=== PATIENT | male | born 1985 | race Caucasian/White ===

== ENCOUNTER 2016-06-04 09:19 | Emergency (ER) | payer OTHER ==
[2016-06-04] MEDS ORDERED: Metoclopramide 10 MG/2 ML SDV IVPUSH ONE (09:32)
[2016-06-04] MEDS ORDERED: HYDROmorphone 1 MG/ML Syringe IVPUSH ONE (09:32)
--- NOTE | 2016-06-04 09:37 | EDM.PDOC ---
ED HPI Trauma - General Chief Complaint: Trauma Stated Complaint: [facility] Time Seen by Provider: 06/04/16 09:21 Source: Reports: Patient History Limitations: Reports: No limitations - History of Present Illness INITIAL COMMENTS - FREE TEXT/NARRATIVE: 22-year-old male presents the ED after a work-related injury. 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 Or struck with travel from pieces of the exploding tire in the face who took a serious blow to his nose. It also knocked him backwards so that he fell on concrete floor landing on his right chest arm forearm wrist area. He believes he was dazed but he never lost consciousness. No systolic bleeding on its own. States his teeth are all aligned. He comes in in c-collar precautions. Denies any pain in his chest other than his right lateral ribs. No abdominal pain and he can work without any pain in his knees hips or lower back. Symptom Onset Date: 06/04/16 Symptom Onset Time: 08:30 Occurred When: this morning Occurred Where: work Method of Injury: direct blow (Tire blew up in his face.), other Severity: moderate Pain/Injury Location: Reports: face, mouth, neck, chest (Right ribs), upper extremity, right (Right forearm and wrist area.) Consciousness: Reports: no loss of consciousness, dazed. Denies: remembers incident, remembers coming to hosp, still comatose, unsure Associated Symptoms: Reports: no other symptoms Allergies/ADRs: Allergies No Known Allergies Allergy (Verified 06/04/16 09:46) Home Medications: Ambulatory Orders . [No Known Home Meds] 06/04/16 [Confirmed 06/04/16] Past Medical History - Past Health History Medical/Surgical History: Denies Medical/Surgical History Genitourinary History: Reports: Renal calculus Musculoskeletal History: Reports: None Neurological History: Reports: Migraines Immunologic History: Reports: None - Past Surgical History Musculoskeletal Surgical History: Reports: Arthroscopic knee Social & Family History - Family History Family Medical History: Noncontributory - Tobacco Use Smoking Status *Q: Current Every Day Smoker Years of Tobacco use: 6 Packs/Tins Daily: 1 Used Tobacco, but Quit: No - Caffeine Use Caffeine Use: Reports: Coffee, Energy drinks, Soda, Tea - Recreational Drug Use Recreational Drug Use: No - Living Situation & Occupation Occupation: employed Review of Systems - Review of Systems Review Of Systems: See Below Constitutional: Reports: no symptoms Eyes: Reports: no symptoms, other (Has some superficial abrasions to the upper left eyelid. Theses are linear in fashion. Also otherwise normal.) Ears: Reports: no symptoms Nose: Reports: epistaxis (Dry blood in both anterior nares. The nose itself appears to be aligned fairly well. He is mildly swelling.) Mouth/Throat: Reports: other (Bones no malocclusion teeth nausea. No injury to the tongue or dental injuries appreciated.) Respiratory: Reports: No Symptoms, Other. Denies: Shortness of Breath, Wheezing Cardiovascular: Reports: no symptoms (Some pain on palpation of the right ribs.) GI/Abdominal: Reports: No symptoms Genitourinary: Reports: no symptoms Musculoskeletal: Reports: neck pain, hand pain (Wrist pain hand pain and forearm pain on the right side he believes he landed on that arm when he fell backwards). Denies: no symptoms, shoulder pain, arm pain, back pain, leg pain, foot pain, joint pain, joint swelling Skin: Reports: no symptoms ( after the exploding tire struck him.) Neurological: Reports: No Symptoms ED EXAM, TRAUMA (MAJOR/MULTI) - Physical Exam Exam: See Below Exam Limited By: No limitations General Appearance: alert, WD/WN, other (Nose is mildly swollen both ears are clogged with blood. No active bleeding) Head: atraumatic, normocephalic, other ( Two Superficial abrasions to the left upper eyelid appreciated.) Eyes: bilateral eye: normal fundi, normal inspection, PERRL Ears: normal TMs Nose: nasal swelling (Mild), dried blood (In both ears worse on the left as compared to the right.). No: nasal deformity, nasal discharge, nasal ecchymosis , septal deformity, septal hematoma Throat/Mouth: Normal inspection, Normal lips, Normal teeth, Normal gums, Normal oropharynx, Other (No malocclusion evident.) Neck: other (Tenderness along the right paraspinal musculature on examination of her c-collar was replaced and will be cleared by CT exam) Cardiovascular: normal peripheral pulses, regular rate, rhythm, no edema, no gallop, no murmur Respiratory/Chest: no respiratory distress, lungs clear, normal breath sounds, no accessory muscle use GI/Abdominal: normal bowel sounds, soft, non tender, no organomegaly (Male) Exam: No hernia Rectal (Males) Exam: Normal rectal tone Back: normal inspection, non-tender, other (No abrasions or contusions.). No: CVA tenderness (R), CVA tenderness (L) Extremities: other (Right forearm was all wrapped up initially. Examination shows slight swelling of the dorsal aspect of the wrist and mid forearm with no developing hematoma unit. No deformities are otherwise appreciated) Neurologic: no motor/sensory deficits, alert, normal mood/affect, oriented x 3 Skin: Normal color, Warm/dry - Wil Coma Score Best Eye Response (Wil): (4) open spontaneously Best Verbal Response (Wil): (5) oriented Best Motor Response (Jewett): (6) obeys commands Jewett Total: 15 Course - Vital Signs Last Recorded V/S: Last Vital Signs Temp 36.7 C 06/04/16 12:05 Pulse 90 06/04/16 12:05 Resp 16 06/04/16 12:05 BP 113/85 06/04/16 12:05 Pulse Ox 100 06/04/16 12:05 - Orders/Labs/Meds Orders: Active Orders 24 hr Category Date Time Status Vaccines to be Administered [RC] PER UNIT ROUTINE Care 06/04/16 11:34 Active Forearm 2V Rt [CR] Stat Exams 06/04/16 09:32 Taken Wrist Comp Min 3V Rt [CR] Stat Exams 06/04/16 09:33 Taken Labs: Laboratory Tests 06/04/16 06/04/16 Range/Units 09:34 09:34 WBC 7.39 (4.23-9.07) K/mm3 RBC 5.50 (4.63-6.08) M/mm3 Hgb 15.8 (13.7-17.5) gm/L Hct 46.1 (40.1-51.0) % MCV 83.8 (79.0-92.2) fl MCH 28.7 (25.7-32.2) pg MCHC 34.3 (32.2-35.5) g/dl RDW Std Deviation 41.0 (35.1-43.9) fL Plt Count 187 (163-337) K/mm3 MPV 9.9 (9.4-12.3) fl Neutrophils % (Manual) 60 (40-60) % Band Neutrophils % 0 (0-10) % Lymphocytes % (Manual) 39 (20-40) % Atypical Lymphs % 0 % Monocytes % (Manual) 1 L (2-10) % Eosinophils % (Manual) 0 L (0.8-7.0) % Basophils % (Manual) 0 L (0.2-1.2) Platelet Estimate Adequate RBC Morph Comment Normal Sodium 139 (136-145) mEq/L Potassium 3.9 (3.5-5.1) mEq/L Chloride 106 (98-107) mEq/L Carbon Dioxide 25 (21-32) mEq/L Anion Gap 11.9 (5-15) BUN 11 (7-18) mg/dL Creatinine 0.8 (0.7-1.3) mg/dL Est Cr Clr Drug Dosing TNP Estimated GFR (MDRD) > 60 (>60) mL/min BUN/Creatinine Ratio 13.8 L (14-18) Glucose 96 (74-106) mg/dL Calcium 8.7 (8.5-10.1) mg/dL Total Bilirubin 0.5 (0.2-1.0) mg/dL AST 23 (15-37) U/L ALT 23 (16-63) U/L Alkaline Phosphatase 126 H (46-116) U/L Total Protein 7.1 (6.4-8.2) g/dl Albumin 4.1 (3.4-5.0) g/dl Globulin 3.0 gm/dL Albumin/Globulin Ratio 1.4 (1-2) Ethyl Alcohol 0.00 (0.00) gm% Meds: Medications Discontinued Medications Generic Name Dose Route Start Last Admin Trade Name Freq PRN Reason Stop Dose Admin Diphtheria/Tetanus/Acell Pertussis 0.5 ml 06/04/16 11:34 06/04/16 11:44 Boostrix IM 06/04/16 11:35 0.5 ml .ONCE ONE Administration Hydromorphone HCl 1 mg 06/04/16 09:32 06/04/16 10:03 Dilaudid IVPUSH 06/04/16 09:33 1 mg ONETIME ONE Administration Hydromorphone HCl 0.5 mg 06/04/16 10:39 06/04/16 10:49 Dilaudid IVPUSH 06/04/16 10:40 0.5 mg ONETIME ONE Administration Sodium Chloride 1,000 mls @ 150 mls/hr 06/04/16 09:45 06/04/16 09:51 Normal Saline IV 150 mls/hr ASDIRECTED EDUIN Administration Metoclopramide HCl 10 mg 06/04/16 09:32 06/04/16 09:54 Reglan IVPUSH 06/04/16 09:33 10 mg ONETIME ONE Administration - Radiology Interpretation Free Text/Narrative:: 10-year-old male involved in a work-related injury this morning. Titer seen in thalamus repairing up into her face. 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 He was struck with pieces of the tire in the midface particularly his nose and hyperextended his neck. The force of the blow also pushed him backwards causing him to fall to concrete floor landing on his right ribs right shoulder forearm elbow and wrist area. He came in by ambulance and with a C-spine precaution. He has abrasions to the upper left eyelid without any injury to the eye itself. Nose is been continued contused and was actively bleeding the ball size but has stopped since arrival no septal hematoma evident. His right arm is wrapped in a dressing. Plan he course CT of the maxillofacial bones his head his cervical spine an CT of his chest. - Re-Assessments/Exams Free Text/Narrative Re-Assessment/Exam: 06/04/16 10:49: CT scan of the facial bones reveals no fractures. Even his nose is not broken. CT of the head is within normal limits CT cervical spine is also within normal limits and the collar was removed by me. X-rays of the forearm wrist and elbow area show no broken bones. Examination of the dressings were removed so that he is developing a hematoma and bruising over the olecranon process of the elbow. Has some soft tissue swelling dorsal wrist and mid forearm. His nose will be cleaned out as best as possible causes for with dried blood clots. Given something to drink and we'll get him up and see how he feels. He will have to call for arrived from [facility] to come and pick him up. 06/04/16 11:51 He was up and walking he states he felt overall better. HTN his ribs in his forearm and lumbar stiffness and soreness in his neck in his course his nose is quite sore. He plans on returning to work tomorrow. I sore areas today and tomorrow. Motrin 600 mg every 6 hours when necessary for pain relief. Departure - Departure Time of Disposition: 11:36 Disposition: Home, Self-Care 01 Condition: fair Clinical Impression: Contusion of nose, initial encounter Qualifiers: Encounter type: initial encounter Qualified Code(s): S00.33XA - Contusion of nose, initial encounter Abrasion of left eyebrow Qualifiers: Encounter type: initial encounter Qualified Code(s): S00.212A - Abrasion of left eyelid and periocular area, initial encounter Sprain of cervical neck Qualifiers: Encounter type: initial encounter Qualified Code(s): S13.9XXA - Sprain of joints and ligaments of unspecified parts of neck, initial encounter Contusion of rib on right side Qualifiers: Encounter type: initial encounter Qualified Code(s): S20.211A - Contusion of right front wall of thorax, initial encounter Contusion of right forearm, initial encounter Qualifiers: Encounter type: initial encounter Qualified Code(s): S50.11XA - Contusion of right forearm, initial encounter Contusion of right elbow and forearm Qualifiers: Encounter type: initial encounter Qualified Code(s): S50.11XA - Contusion of right forearm, initial encounter Instructions: Contusion, [id number], Cervical Sprain, [id number], Abrasion , [id number] Referrals: PCP,None [Primary Care Provider] - Forms: ED Department Discharge Additional Instructions: Evaluation in the emergency room today in regards to work related injury. Somewhat higher you're working on repairing this morning exploded with suffering blunt force trauma to the mid facial structures from prior fragments. Blunt trauma to the nose without fracture identified on CT exam. Nose was actively bleeding but it stopped prior to coming to the ED. Suffered minor abrasions to the upper eyelid area on the left side strain of the cervical spine from the force of injury. Due to the blast injury fall to the floor he contused her right ribs right forearm and right wrist area. Expect to have more stiffness and soreness develop over the next 48 hours and other areas. Also soft tissue swelling goes on for up to 48 hours after injury. Ice pack to these areas for one half hour of every 4 hours may reduce swelling and pain. Off work today but may return to work tomorrow if you feel capable. Motrin 600 mg every 6 hours need to relieve pain and inflammation. Followup with personal physician if any further problems occur. - My Orders Last 24 Hours: My Active Orders 06/04/16 09:32 Forearm 2V Rt [CR] Stat 06/04/16 09:33 Wrist Comp Min 3V Rt [CR] Stat 06/04/16 11:34 Vaccines to be Administered [RC] PER UNIT ROUTINE - Assessment/Plan Last 24 Hours: My Active Orders 06/04/16 09:32 Forearm 2V Rt [CR] Stat 06/04/16 09:33 Wrist Comp Min 3V Rt [CR] Stat 06/04/16 11:34 Vaccines to be Administered [RC] PER UNIT ROUTINE
[2016-06-04] MEDS ORDERED: Sodium Chloride 0.9% 1,000 ML IV SCH (09:45)
[2016-06-04] MEDS ORDERED: HYDROmorphone 0.5 MG/0.5 ML Syringe IVPUSH ONE (10:39)
--- NOTE | 2016-06-04 10:51 | CT ---
CT cervical spine Technique: Multiple axial sections were obtained from above C1 inferiorly to the bottom of T2. Reconstructed sagittal and coronal images were reviewed. Comparison: No previous cervical spine imaging. Findings: Posterior skull base is intact. Partial congenital block vertebra noted at C3-4. Vertebral bodies and posterior arches are intact. No fracture is seen. No bony central canal stenosis is seen. Moderate narrowing of the left neural foramina on a developmental basis is seen at C3-4. Other neural foramina are patent. No abnormal subluxation is seen on the reconstructed sagittal images. Impression: 1. 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 2. No acute fracture or abnormal subluxation is seen on CT study of the cervical spine. Diagnostic code #2
--- NOTE | 2016-06-04 10:54 | CT ---
CT facial bones Technique: Multiple axial sections were obtained through the facial bones. Reconstructed coronal and sagittal images were reviewed. Findings: Mild mucosal thickening is seen within the maxillary sinuses and both sides. Other visualized sinuses are clear. No air-fluid levels are seen. Right and left globes are symmetric. No facial bone fracture is identified. Impression: 1. Sinus findings which likely are pre-existing. 2. Nothing acute is seen on CT study of the facial bones. Diagnostic code #2
--- NOTE | 2016-06-04 10:58 | CT ---
CT chest Technique: Multiple axial sections through the chest were obtained. Intravenous contrast was not utilized. Comparison: Previous chest CT of 03/19/16 is available. Findings: Mediastinum and hilar regions appear within normal limits. No pericardial thickening is seen. Small nonobstructing calculus is partially visualized within the mid right kidney. No axillary adenopathy is seen. Lungs are clear. No pneumothorax or pleural effusion is seen. No discrete rib fracture is appreciated. Reconstructed sagittal images shows no compression deformity within the thoracic spine. Sternum shows no fracture. Impression: 1. Small nonobstructing calculus within the mid right kidney. 2. Noncontrast chest CT study is otherwise unremarkable. Diagnostic code #2
--- NOTE | 2016-06-04 11:00 | CT ---
Head CT Technique: Multiple axial sections were obtained through the brain. Intravenous contrast was not utilized. Comparison: Previous head CT study of 09/07/15. Findings: Ventricles along with basal cisterns and sulci over the convexities are within normal limits for the patient's age. No abnormal parenchymal densities are seen. No evidence of intracranial hemorrhage. No midline shift or mass effect is seen. Mucosal thickening is seen within both maxillary sinuses. Other sinuses that are seen appear clear. No acute calvarial abnormality is seen. Impression: 1. Mucosal thickening within both maxillary sinuses with no air-fluid levels. 2. No acute intracranial abnormality is appreciated. No skull fracture is seen. Diagnostic code #2
[2016-06-04] MEDS ORDERED: Diphtheria,Pertussis(Acell),Tetanus Vaccine 0.5 ML SDV inactive IM ONE (11:34)
[2016-06-04 12:20] VITALS: BP 113/85
--- NOTE | 2016-06-05 12:21 | CR ---
Right wrist: Four views of the right wrist were obtained. Comparison: No prior right wrist exam. Joint spaces are preserved. No fracture, dislocation or other bony abnormality is seen. Impression: 1. No abnormality is seen on right wrist exam. Diagnostic code #1
--- NOTE | 2016-06-05 12:21 | CR ---
Right forearm: Two views of the right forearm were obtained. Comparison: No previous forearm study. No fracture or other bony abnormality is seen. Mild soft tissue swelling is present. Impression: 1. Soft tissue swelling. No acute bony abnormality is identified on right forearm study. Diagnostic code #2
== END 2016-06-04 12:10 | disposition home or self-care (01) ==
LOC: JD.ED 09:19
DX: S13.9XXA Sprain of joints and ligaments of unspecified parts of neck, initial encounter (principal); S50.11XA Contusion of right forearm, initial encounter; S20.211A Contusion of right front wall of thorax, initial encounter; S00.33XA Contusion of nose, initial encounter; S00.212A Abrasion of left eyelid and periocular area, initial encounter; F17.210 Nicotine dependence, cigarettes, uncomplicated; Z98.890 Other specified postprocedural states; W37.8XXA Explosion and rupture of other pressurized tire, pipe or hose, initial encounter; Y92.69 Other specified industrial and construction area as the place of occurrence of the external cause; Y99.0 Civilian activity done for income or pay; Z23 Encounter for immunization
CPT/HCPCS: 36415; 70450; 70486; 71250; 72125; 73090; 73110; 80053; 85025; 90471; 96361; 96374; 96375; 99285; G0480; J1170; J2765; J7040; 90715; 99284

== ENCOUNTER 2016-10-02 14:01 | Emergency (ER) | payer OTHER ==
[2016-10-02 14:35] VITALS: BP 108/69
[2016-10-02] MEDS ORDERED: diphenhydrAMINE 50 MG/ML SDV IVPUSH ONE (15:23)
[2016-10-02] MEDS ORDERED: Sodium Chloride 0.9% 1,000 ML IV ONE (15:23)
[2016-10-02] MEDS ORDERED: Ondansetron 4 MG/2 ML SDV IVPUSH ONE (15:23)
[2016-10-02] MEDS ORDERED: Metoclopramide 10 MG/2 ML SDV IVPUSH ONE (15:23)
[2016-10-02] MEDS ORDERED: Ketorolac 30 MG/ML SDV IVPUSH ONE (15:23)
--- NOTE | 2016-10-02 15:44 | EDM.PDOC ---
ED HPI GENERAL MEDICAL PROBLEM - General Chief Complaint: Headache Stated Complaint: SEVERE HEADACHE,BDY ACHES Time Seen by Provider: 10/02/16 14:48 Source of Information: Reports: Patient History Limitations: Reports: No Limitations - History of Present Illness INITIAL COMMENTS - FREE TEXT/NARRATIVE: The patient is a 31-year-old male who was sent over from clinic for evaluation of headache. According the patient, he was in clinic earlier this week and diagnosed with possible "pneumonia" but not a type that would require treatment with antibiotics. He's had some stuffy nose and cough, his cough is actually improved. No documented fevers. He also has a bad headache and back ache and states that he was sent here from clinic for evaluation of his headache and backache. His headache is been present for a few days. Constant, frontal, throbbing, severe. States that he hasn't had headaches this severe previously. No vision changes, bright sunlight does exacerbate the headache. Nausea, had some vomiting initially but no vomiting now. Hasn't taken anything for the headache today. He also has diffuse back pain. Denies injury. Pain is located in both upper and the lower back. Moderate severity. 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 Pain Score (Numeric/FACES): 7 - Related Data Allergies Allergy/AdvReac Type Severity Reaction Status Date / Time No Known Allergies Allergy Verified 06/04/16 09:46 Home Meds: Home Meds Ibuprofen 800 mg PO TID PRN #30 tablet 10/02/16 [Rx] Past Medical History - Past Health History Medical/Surgical History: Denies Medical/Surgical History HEENT History: Reports: Impaired Vision Genitourinary History: Reports: Renal Calculus Musculoskeletal History: Reports: None Neurological History: Reports: Migraines Psychiatric History: Reports: Other (See Below) Other Psychiatric History: 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 Immunologic History: Reports: None - Infectious Disease History Infectious Disease History: Reports: Chicken Pox - Past Surgical History Musculoskeletal Surgical History: Reports: Arthroscopic Knee Social & Family History - Family History Family Medical History: Noncontributory - Tobacco Use Smoking Status *Q: Current Every Day Smoker Years of Tobacco use: 10 Packs/Tins Daily: 0.5 Used Tobacco, but Quit: No - Caffeine Use Caffeine Use: Reports: Coffee - Recreational Drug Use Recreational Drug Use: No - Living Situation & Occupation Occupation: Employed ED ROS GENERAL - Review of Systems Review Of Systems: See Below Constitutional: Reports: Chills, Malaise, Fatigue HEENT: Denies: Vision Change Respiratory: Reports: Cough GI/Abdominal: Denies: Nausea Musculoskeletal: Reports: Neck Pain, Back Pain Skin: Reports: No Symptoms Neurological: Reports: Headache - Physical Exam Exam: See Below Exam Limited By: No Limitations General Appearance: Alert, WD/WN, No Apparent Distress Eye Exam: Bilateral Eye: EOMI, PERRL Ears: Normal External Exam Nose: Normal Inspection, Normal Mucosa, No Blood Throat/Mouth: Normal Inspection, Normal Oropharynx, Normal Voice, No Airway Compromise Head Exam: Atraumatic, Normocephalic Neck: Normal Inspection, Supple, Full Range of Motion, Other (midline C-spine TTP, skin normal, no step offs. No meningismus. The patient spontaneously nods his head yes and no in response to my questioning and doesn't appear to be uncomfortable.) Respiratory/Chest: No Respiratory Distress, Lungs Clear, Normal Breath Sounds, Chest Non-Tender Cardiovascular: Normal Peripheral Pulses, Regular Rate, Rhythm, No Murmur GI/Abdominal: Soft, Non-Tender, No Distention. No: Rebound Neuro Exam (Abbreviated): Alert, Oriented, CN II-XII Intact, Normal Cognition, No Motor/Sensory Deficits Back Exam: Normal Inspection, Paraspinal Tenderness, Vertebral Tenderness, Other (diffusely, most prominent in mid-T spine) Extremities: Normal Inspection Psychiatric: Normal Affect, Normal Mood Skin Exam: Warm, Dry, Intact, Normal Color, No Rash Course - Vital Signs Last Recorded V/S: Last Vital Signs Temp 36.8 C 10/02/16 14:31 Pulse 76 10/02/16 14:31 Resp 16 10/02/16 14:31 BP 108/69 10/02/16 14:31 Pulse Ox 98 10/02/16 14:31 - Orders/Labs/Meds Labs: Laboratory Tests 10/02/16 10/02/16 Range/Units 15:32 15:32 WBC 7.53 (4.23-9.07) K/mm3 RBC 4.63 (4.63-6.08) M/mm3 Hgb 14.0 (13.7-17.5) gm/L Hct 40.7 (40.1-51.0) % MCV 87.9 (79.0-92.2) fl MCH 30.2 (25.7-32.2) pg MCHC 34.4 (32.2-35.5) g/dl RDW Std Deviation 42.8 (35.1-43.9) fL Plt Count 171 (163-337) K/mm3 MPV 9.8 (9.4-12.3) fl Neut % (Auto) 56.9 (34.0-67.9) % Lymph % (Auto) 35.9 (21.8-53.1) % Gilchrist % (Auto) 5.6 (5.3-12.2) % Eos % (Auto) 1.2 (0.8-7.0) Baso % (Auto) 0.3 (0.1-1.2) % Neut # (Auto) 4.29 (1.78-5.38) K/mm3 Lymph # (Auto) 2.70 (1.32-3.57) K/mm3 Gilchrist # (Auto) 0.42 (0.30-0.82) K/mm3 Eos # (Auto) 0.09 (0.04-0.54) K/mm3 Baso # (Auto) 0.02 (0.01-0.08) K/mm3 Sodium 144 (136-145) mEq/L Potassium 3.9 (3.5-5.1) mEq/L Chloride 110 H (98-107) mEq/L Carbon Dioxide 27 (21-32) mEq/L Anion Gap 10.9 (5-15) BUN 10 (7-18) mg/dL Creatinine 0.9 (0.7-1.3) mg/dL Est Cr Clr Drug Dosing 121.11 mL/min Estimated GFR (MDRD) > 60 (>60) mL/min BUN/Creatinine Ratio 11.1 L (14-18) Glucose 86 (74-106) mg/dL Calcium 8.4 L (8.5-10.1) mg/dL Total Bilirubin 0.2 (0.2-1.0) mg/dL AST 20 (15-37) U/L ALT 19 (16-63) U/L Alkaline Phosphatase 101 (46-116) U/L Total Protein 6.9 (6.4-8.2) g/dl Albumin 3.8 (3.4-5.0) g/dl Globulin 3.1 gm/dL Albumin/Globulin Ratio 1.2 (1-2) Meds: Medications Discontinued Medications Generic Name Dose Route Start Last Admin Trade Name Jose PRN Reason Stop Dose Admin Diphenhydramine HCl 25 mg 10/02/16 15:23 10/02/16 15:44 Benadryl IVPUSH 10/02/16 15:24 25 mg ONETIME ONE Administration Sodium Chloride 1,000 mls @ 1,000 mls/hr 10/02/16 15:23 10/02/16 15:39 Normal Saline IV 10/02/16 16:22 1,000 mls/hr ONETIME ONE Administration Ketorolac Tromethamine 30 mg 10/02/16 15:23 10/02/16 15:43 Toradol IVPUSH 10/02/16 15:24 30 mg ONETIME ONE Administration Metoclopramide HCl 10 mg 10/02/16 15:23 10/02/16 15:39 Reglan IVPUSH 10/02/16 15:24 10 mg ONETIME ONE Administration Ondansetron HCl 4 mg 10/02/16 15:23 10/02/16 15:43 Zofran IVPUSH 10/02/16 15:24 4 mg ONETIME ONE Administration - Radiology Interpretation Free Text/Narrative:: Patient is well appearing, has normal vital signs, benign exam, no suggestion of meningismus. His basic labs are reassuring, with a normal white count and no left shift. His headache is much improved after a migraine cocktail. He does not have significant neck stiffness or pain with moving his head around. He states his headache is resolved. His back pain appears to be musculoskeletal. Review of his records show that he has endorsed headache in the emergency department in the past. I don't think that he needs emergent imaging or other emergency department workup given that he is feeling much better now. I will refer him back to clinic for further workup. My suspicion for meningitis is very low given all of the above in this well-appearing patient, I think that the risks associated with lumbar puncture outweigh the potential benefit of further diagnostic workup in the emergency department at this time. I did discuss strict return precautions with the patient for worsening symptoms, which would prompt reevaluation with possible further workup if indicated. Patient understood. I also discussed the patient with Dr. Lopez who agrees with this decision making. Departure - Departure Time of Disposition: 17:08 Disposition: Home, Self-Care 01 Clinical Impression: Headache Qualifiers: Headache type: unspecified Headache chronicity pattern: acute headache Intractability: not intractable Qualified Code(s): R51 - Headache - Discharge Information Prescriptions: Ibuprofen 800 mg PO TID PRN #30 tablet PRN Reason: Headache Instructions: General Headache Without Cause Referrals: Woody Yepez [Primary Care Provider] - Forms: ED Department Discharge, ED Return to Work/School Form Additional Instructions: 1. Take Tylenol and/or ibuprofen as needed for headache and back pain 2. Take [id number] cough and cold medication as needed for your symptoms 3. You were given a combination of medications that are good for migraines. You may follow up with your clinic provider to discuss further management of future migraine headaches. 4. Please follow-up with Dr. Yepez for further care. 5. Return to the emergency department if you've a severe headache, difficulty breathing, or other concerning symptoms
== END 2016-10-02 18:18 | disposition home or self-care (01) ==
LOC: JD.ED 14:01
DX: R51 Headache (principal); F17.210 Nicotine dependence, cigarettes, uncomplicated; Z98.890 Other specified postprocedural states; Z87.442 Personal history of urinary calculi
CPT/HCPCS: 36415; 80053; 85025; 96361; 96374; 96375; 99284; J1200; J1885; J2405; J2765; J7040

== ENCOUNTER 2016-10-13 14:24 | Emergency (ER) | payer OTHER ==
[2016-10-13 14:34] VITALS: BP 122/79
[2016-10-13] MEDS ORDERED: Acetaminophen/HYDROcodone 325-5 MG Tab PO ONE (15:06)
[2016-10-13] MEDS ORDERED: Cyclobenzaprine 10 MG Tab PO ONE (15:16)
--- NOTE | 2016-10-13 15:16 | EDM.PDOC ---
ED HPI GENERAL MEDICAL PROBLEM - General Chief Complaint: Back Pain or Injury Stated Complaint: BACK PAIN Time Seen by Provider: 10/13/16 14:52 Source of Information: Reports: Patient History Limitations: Reports: No Limitations - History of Present Illness INITIAL COMMENTS - FREE TEXT/NARRATIVE: Patient is a 31-year-old male who presents to the ED complaining of lower back pain. States the pain has been present for the past 2 weeks with no known precipitating event. States he was evaluated Dr. Lopez today and was diagnosed with lower back pain with prescription for meloxicam provided. States upon leaving the pain worsened and is rated 9 out of 10. Denies any saddle anesthesia or incontinence. There is no foot drop or prior history of back issues. He is wishing to be provided a muscle relaxer. Lower Back Pain Score (Numeric/FACES): 9 - Related Data Allergies Allergy/AdvReac Type Severity Reaction Status Date / Time No Known Allergies Allergy Verified 10/13/16 14:35 Home Meds: Home Meds Ibuprofen 800 mg PO TID PRN #30 tablet 10/02/16 [Rx] Orphenadrine [Norflex] 100 mg PO BID PRN #14 tab.er 10/13/16 [Rx] Past Medical History - Past Health History Medical/Surgical History: Denies Medical/Surgical History HEENT History: Reports: Impaired Vision Genitourinary History: Reports: Renal Calculus Musculoskeletal History: Reports: None Neurological History: Reports: Migraines Psychiatric History: Reports: Other (See Below) Other Psychiatric History: 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 Immunologic History: Reports: None - Infectious Disease History Infectious Disease History: Reports: Chicken Pox - Past Surgical History Musculoskeletal Surgical History: Reports: Arthroscopic Knee Social & Family History - Family History Family Medical History: Noncontributory - Tobacco Use Smoking Status *Q: Current Every Day Smoker Years of Tobacco use: 10 Packs/Tins Daily: 0.5 Used Tobacco, but Quit: No Second Hand Smoke Exposure: No - Caffeine Use Caffeine Use: Reports: Coffee, Soda - Recreational Drug Use Recreational Drug Use: No - Living Situation & Occupation Occupation: Employed ED ROS GENERAL - Review of Systems Review Of Systems: See Below Constitutional: Reports: No Symptoms Respiratory: Reports: No Symptoms Cardiovascular: Reports: No Symptoms GI/Abdominal: Reports: No Symptoms : Denies: Dysuria Musculoskeletal: Reports: Back Pain (Midline/paraspinal low back pain. ), Muscle Stiffness. Denies: Leg Pain Neurological: Denies: Numbness, Pre-Existing Deficit, Tingling, Difficulty Walking, Weakness, Gait Disturbance ED EXAM,LOWER BACK PAIN/INJURY - Physical Exam Exam: See Below Exam Limited By: No Limitations General Appearance: Alert, WD/WN, Mild Distress Ears: Hearing Grossly Normal Nose: Normal Inspection Throat/Mouth: Normal Voice, No Airway Compromise Head: Atraumatic, Normocephalic Neck: Normal Inspection, Supple, Non-Tender, Full Range of Motion Respiratory/Chest: No Respiratory Distress, Lungs Clear, Normal Breath Sounds, No Accessory Muscle Use Cardiovascular: Normal Peripheral Pulses, Regular Rate, Rhythm GI/Abdominal: Normal Bowel Sounds, Soft, Non-Tender, No Organomegaly, No Distention Back Exam: Normal Inspection, Decreased Range of Motion (Secondary to midline low back pain.), Paraspinal Tenderness, Vertebral Tenderness (L4 L5 S1), Other ( No SI joint tenderness bilaterally.). No: Muscle Spasm Extremities: Normal Inspection, Normal Range of Motion, Non-Tender, No Pedal Edema, Normal Capillary Refill Neurological: Alert, Normal Mood/Affect, Normal Dorsiflexion, CN II-XII Intact, Normal Plantar Flexion, No Motor/Sensory Deficits, Oriented x 3. No: Straight Leg Raise (L), Straight Leg Raise (R) Psychiatric: Normal Affect, Normal Mood Skin Exam: Warm, Dry, Intact, Normal Color Course - Vital Signs Last Recorded V/S: Last Vital Signs Temp Pulse 88 10/13/16 14:32 Resp 20 10/13/16 14:32 BP 122/79 10/13/16 14:32 Pulse Ox 98 10/13/16 14:32 - Orders/Labs/Meds Meds: Medications Discontinued Medications Generic Name Dose Route Start Last Admin Trade Name Jose PRN Reason Stop Dose Admin Hydrocodone Bitart/Acetaminophen 1 tab 10/13/16 15:06 10/13/16 15:17 [place] 325-5 Mg PO 10/13/16 15:07 1 tab ONETIME ONE Administration Cyclobenzaprine HCl 10 mg 10/13/16 15:16 10/13/16 15:20 Flexeril PO 10/13/16 15:17 10 mg ONETIME ONE Administration - Re-Assessments/Exams Free Text/Narrative Re-Assessment/Exam: Findings on examination elicited mid/paraspinal low back pain approximately belt line with minimal pain on palpation. No SI joint tenderness. No radiation of pain. No sensory/motor deficits noted. Patient was able to get out out of bed with no assistance and minimal difficulties. He was able to walk with no concerning findings. He is able to bend over and touch his toes. Patient was evaluated by Dr. Lopez at [facility] today prior to being evaluated in ED. He was prescribed meloxicam. Patient presents the ED with worsening symptoms. His pain at that time was a 4 out of 10. Currently the pain is a 9 out of 10. Will go ahead and order [place] one tab by mouth. We'll treat his pain in the ED. Will start the patient on a muscle relaxer in addition to the meloxicam. He is contacting someone for a ride. Will need to see the rides eyeballs prior to administration of medications. Departure - Departure Time of Disposition: 16:00 Disposition: Home, Self-Care 01 Clinical Impression: Low back pain without sciatica Qualifiers: Chronicity: acute Back pain laterality: midline Qualified Code(s): M54.5 - Low back pain - Discharge Information Prescriptions: Orphenadrine [Norflex] 100 mg PO BID PRN #14 tab.er PRN Reason: Pain Instructions: Muscle Strain, [id number], Back Pain, Adult, [id number], Back Injury Prevention, [id number] Referrals: Woody Yepez [Primary Care Provider] - Forms: ED Department Discharge, ED Return to Work/School Form Additional Instructions: No driving today since receiving a sedative medication while in the ED. Continue taking meloxicam as prescribed. In addition will have you take Norflex 100 mg twice a day to relieve muscle tension. Utilize warm or cold compresses to affected area as needed. Refrain from any activities that cause worsening pain. No driving or operating heavy equipment while taking the Norflex. Follow with your PCP the first part of next week if symptoms are not improving. Return to ED as needed for any new or worsening symptoms.
== END 2016-10-13 16:00 | disposition home or self-care (01) ==
LOC: JD.ED 14:24
DX: M54.5 Low back pain (principal); F17.210 Nicotine dependence, cigarettes, uncomplicated; Z87.442 Personal history of urinary calculi
CPT/HCPCS: 81001; 99283; A9270

== ENCOUNTER 2017-11-02 15:16 | Emergency (ER) | payer SELFPAY ==
[2017-11-02 15:24] VITALS: BP 128/83
[2017-11-02] MEDS ORDERED: Ondansetron 4 MG/2 ML SDV IVPUSH ONE (15:46)
[2017-11-02] MEDS ORDERED: Sodium Chloride 0.9% 10 ML Syringe FLUSH PRN (15:46)
--- NOTE | 2017-11-02 15:58 | EDM.PDOC ---
ED HPI GENERAL MEDICAL PROBLEM - General Chief Complaint: General Stated Complaint: BACK PAIN/EAR PAIN Time Seen by Provider: 11/02/17 15:32 Source of Information: Reports: Patient History Limitations: Reports: No Limitations - History of Present Illness INITIAL COMMENTS - FREE TEXT/NARRATIVE: Patient is a 32-year-old male presents ED complaining of chronic low back pain, feeling rundown, poor appetite, low energy that has been present for the past 2 weeks. Patient states 2 weeks ago he had some form of food poisoning and has since then had these symptoms. 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 He has been more depressed. There's been no recent change in weight. No chest pain. Sometimes he experience some shortness of breath with walking. Cough present chronic. He is mildly nauseated. Faint periumbilical abdominal discomfort. Described as a dull ache. No pain with urination. Back pain chronic no significant changes. There's been no documented fever, blood in his stool, painful urination, or history of depression/anxiety. He was evaluated at the clinic 2 weeks ago and placed on Zofran for nausea. Otherwise he is on no additional medications. No additional past medical history. Surgical history none. PCP is local clinic here. Of note patient states his mom is not doing well and her health is worsening thus has been stressful for him. . Patient does admit to smoking marijuana 1 time a week. Last used 3 nights ago. lower back Pain Score (Numeric/FACES): 6 - Related Data Allergies Allergy/AdvReac Type Severity Reaction Status Date / Time No Known Allergies Allergy Verified 11/02/17 15:24 Home Meds: Home Meds . [No Known Home Meds] 11/02/17 [History] Past Medical History - Past Health History Medical/Surgical History: Denies Medical/Surgical History HEENT History: Reports: Impaired Vision Gastrointestinal History: Reports: Gastritis Genitourinary History: Reports: Renal Calculus Musculoskeletal History: Reports: Back Pain, Chronic Neurological History: Reports: Migraines Psychiatric History: Reports: Other (See Below) Other Psychiatric History: 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 Immunologic History: Reports: None - Infectious Disease History Infectious Disease History: Reports: Chicken Pox - Past Surgical History Musculoskeletal Surgical History: Reports: Arthroscopic Knee Social & Family History - Family History Family Medical History: Noncontributory - Tobacco Use Smoking Status *Q: Current Every Day Smoker Years of Tobacco use: 15 Packs/Tins Daily: 0.7 - Caffeine Use Caffeine Use: Reports: Coffee - Recreational Drug Use Recreational Drug Use: Yes Recreational Drug Type: Reports: Marijuana/Hashish Recreational Drug Use Frequency: Daily - Living Situation & Occupation Living situation: Reports: Single Occupation: Employed ED ROS GENERAL - Review of Systems Review Of Systems: See Below Constitutional: Reports: Malaise, Fatigue, Decreased Appetite. Denies: Fever, Chills, Weakness, Night Sweats, Diaphoresis, Weight Gain HEENT: Reports: No Symptoms Respiratory: Reports: Shortness of Breath Cardiovascular: Reports: No Symptoms GI/Abdominal: Reports: Abdominal Pain, Decreased Appetite, Nausea. Denies: Black Stool, Bloody Stool, Constipation, Diarrhea, Difficulty Swallowing, Distension, Flatus, Hematemesis, Hematochezia, Mucous in Stool, Stool Incontinence, Vomiting : Reports: No Symptoms Musculoskeletal: Reports: No Symptoms Skin: Reports: No Symptoms Neurological: Reports: No Symptoms Psychiatric: Reports: No Symptoms ED EXAM, GENERAL - Physical Exam Exam: See Below Exam Limited By: No Limitations General Appearance: Alert, WD/WN, No Apparent Distress Eye Exam: Bilateral Eye: PERRL Ears: Hearing Grossly Normal Nose: Normal Inspection Throat/Mouth: Normal Voice, No Airway Compromise Head: Atraumatic, Normocephalic Neck: Normal Inspection, Supple, Non-Tender, Full Range of Motion Respiratory/Chest: No Respiratory Distress, Lungs Clear, Normal Breath Sounds, No Accessory Muscle Use, Chest Non-Tender Cardiovascular: Normal Peripheral Pulses, Regular Rate, Rhythm, No Murmur Peripheral Pulses: 2+: Radial (R) GI/Abdominal: Normal Bowel Sounds, Soft, No Organomegaly, No Distention, Tender (periumbilcal region (mild) no mcburneys point or positive manzano sign. ) Back Exam: Normal Inspection. No: CVA Tenderness (L), CVA Tenderness (R) Extremities: Normal Inspection, Normal Range of Motion, Non-Tender Neurological: Alert, Oriented, CN II-XII Intact, Normal Cognition, No Motor/ Sensory Deficits Psychiatric: Normal Affect, Flat Affect Skin Exam: Warm, Dry, Intact, Normal Color, No Rash Course - Vital Signs Last Recorded V/S: Last Vital Signs Temp 98.4 F 11/02/17 15:21 Pulse 86 11/02/17 15:21 Resp 18 11/02/17 15:21 BP 128/83 11/02/17 15:21 Pulse Ox 99 11/02/17 15:21 - Orders/Labs/Meds Orders: Active Orders 24 hr Category Date Time Status Peripheral IV Care [RC] . DIRECTED Care 11/02/17 15:46 Active Abdomen Series w Chest 1V [CR] Stat Exams 11/02/17 15:49 Taken DRUG SCREEN, URINE [URCHEM] Stat Lab 11/02/17 17:34 Ordered Peripheral IV Insertion Adult [OM.PC] Routine Oth 11/02/17 15:46 Ordered Labs: Laboratory Tests 11/02/17 11/02/17 11/02/17 Range/Units 15:50 15:50 17:34 WBC 8.15 (4.23-9.07) K/mm3 RBC 4.26 L (4.63-6.08) M/mm3 Hgb 12.8 L (13.7-17.5) gm/L Hct 36.2 L (40.1-51.0) % MCV 85.0 (79.0-92.2) fl MCH 30.0 (25.7-32.2) pg MCHC 35.4 (32.2-35.5) g/dl RDW Std Deviation 40.6 (35.1-43.9) fL Plt Count 192 (163-337) K/mm3 MPV 10.0 (9.4-12.3) fl Neutrophils % (Manual) 68 H (40-60) % Band Neutrophils % 0 (0-10) % Lymphocytes % (Manual) 27 (20-40) % Atypical Lymphs % 0 % Monocytes % (Manual) 2 (2-10) % Eosinophils % (Manual) 3 (0.8-7.0) % Basophils % (Manual) 0 L (0.2-1.2) Platelet Estimate Adequate Plt Morphology Comment Normal RBC Morph Comment Normal Sodium 143 (136-145) mEq/L Potassium 3.3 L (3.5-5.1) mEq/L Chloride 108 H (98-107) mEq/L Carbon Dioxide 25 (21-32) mEq/L Anion Gap 13.3 (5-15) BUN 11 (7-18) mg/dL Creatinine 0.9 (0.7-1.3) mg/dL Est Cr Clr Drug Dosing 127.82 mL/min Estimated GFR (MDRD) > 60 (>60) mL/min BUN/Creatinine Ratio 12.2 L (14-18) Glucose 117 H (74-106) mg/dL Calcium 8.4 L (8.5-10.1) mg/dL Total Bilirubin 0.3 (0.2-1.0) mg/dL AST 18 (15-37) U/L ALT 20 (16-63) U/L Alkaline Phosphatase 94 (46-116) U/L C-Reactive Protein 1.1 H* (<1.0) mg/dL Total Protein 6.5 (6.4-8.2) g/dl Albumin 3.4 (3.4-5.0) g/dl Globulin 3.1 gm/dL Albumin/Globulin Ratio 1.1 (1-2) TSH 3rd Generation 0.733 (0.358-3.74) uIU/mL Urine Color (Yellow) Urine Appearance (Clear) Urine pH (5.0-8.0) Ur Specific [place] (1.005-1.030) Urine Protein (Negative) Urine Glucose (UA) (Negative) Urine Ketones (Negative) Urine Occult Blood (Negative) Urine Nitrite (Negative) Urine Bilirubin (Negative) Urine Urobilinogen (0.2-1.0) Ur Leukocyte Esterase (Negative) Urine RBC (0-5) /hpf Urine WBC (0-5) /hpf Ur Epithelial Cells (0-5) /hpf Urine Bacteria (FEW) /hpf Urine Mucus (FEW) /hpf Urine Opiates Screen Negative (NEGATIVE) Ur Buprenorphine Scrn Negative (NEGATIVE) Ur Oxycodone Screen Negative (NEGATIVE) Urine Methadone Screen Negative (NEGATIVE) Ur Propoxyphene Screen Negative (NEGATIVE) Ur Barbiturates Screen Negative (NEGATIVE) Ur Tricyclics Screen Negative (NEGATIVE) Ur Phencyclidine Scrn Negative (NEGATIVE) Ur Amphetamine Screen Negative (NEGATIVE) U Methamphetamines Scrn Presumptive positive H (NEGATIVE) U Benzodiazepines Scrn Presumptive positive H (NEGATIVE) U Cocaine Metab Screen Negative (NEGATIVE) U Marijuana (THC) Screen Presumptive positive H (NEGATIVE) Ethyl Alcohol 0.00 (0.00) gm% 11/02/17 Range/Units 17:34 WBC (4.23-9.07) K/mm3 RBC (4.63-6.08) M/mm3 Hgb (13.7-17.5) gm/L Hct (40.1-51.0) % MCV (79.0-92.2) fl MCH (25.7-32.2) pg MCHC (32.2-35.5) g/dl RDW Std Deviation (35.1-43.9) fL Plt Count (163-337) K/mm3 MPV (9.4-12.3) fl Neutrophils % (Manual) (40-60) % Band Neutrophils % (0-10) % Lymphocytes % (Manual) (20-40) % Atypical Lymphs % % Monocytes % (Manual) (2-10) % Eosinophils % (Manual) (0.8-7.0) % Basophils % (Manual) (0.2-1.2) Platelet Estimate Plt Morphology Comment RBC Morph Comment Sodium (136-145) mEq/L Potassium (3.5-5.1) mEq/L Chloride (98-107) mEq/L Carbon Dioxide (21-32) mEq/L Anion Gap (5-15) BUN (7-18) mg/dL Creatinine (0.7-1.3) mg/dL Est Cr Clr Drug Dosing mL/min Estimated GFR (MDRD) (>60) mL/min BUN/Creatinine Ratio (14-18) Glucose (74-106) mg/dL Calcium (8.5-10.1) mg/dL Total Bilirubin (0.2-1.0) mg/dL AST (15-37) U/L ALT (16-63) U/L Alkaline Phosphatase (46-116) U/L C-Reactive Protein (<1.0) mg/dL Total Protein (6.4-8.2) g/dl Albumin (3.4-5.0) g/dl Globulin gm/dL Albumin/Globulin Ratio (1-2) TSH 3rd Generation (0.358-3.74) uIU/mL Urine Color Yellow (Yellow) Urine Appearance Clear (Clear) Urine pH 6.0 (5.0-8.0) Ur Specific [place] > or = 1.030 (1.005-1.030) Urine Protein Trace H (Negative) Urine Glucose (UA) Negative (Negative) Urine Ketones Negative (Negative) Urine Occult Blood Negative (Negative) Urine Nitrite Negative (Negative) Urine Bilirubin Negative (Negative) Urine Urobilinogen 0.2 (0.2-1.0) Ur Leukocyte Esterase Negative (Negative) Urine RBC 0-5 (0-5) /hpf Urine WBC 0-5 (0-5) /hpf Ur Epithelial Cells 0-5 (0-5) /hpf Urine Bacteria Few (FEW) /hpf Urine Mucus Many H (FEW) /hpf Urine Opiates Screen (NEGATIVE) Ur Buprenorphine Scrn (NEGATIVE) Ur Oxycodone Screen (NEGATIVE) Urine Methadone Screen (NEGATIVE) Ur Propoxyphene Screen (NEGATIVE) Ur Barbiturates Screen (NEGATIVE) Ur Tricyclics Screen (NEGATIVE) Ur Phencyclidine Scrn (NEGATIVE) Ur Amphetamine Screen (NEGATIVE) U Methamphetamines Scrn (NEGATIVE) U Benzodiazepines Scrn (NEGATIVE) U Cocaine Metab Screen (NEGATIVE) U Marijuana (THC) Screen (NEGATIVE) Ethyl Alcohol (0.00) gm% Meds: Medications Discontinued Medications Generic Name Dose Route Start Last Admin Trade Name Freq PRN Reason Stop Dose Admin Sodium Chloride 1,000 mls @ 500 mls/hr 11/02/17 16:00 11/02/17 16:02 Normal Saline IV 500 mls/hr ASDIRECTED EDUIN Administration Ondansetron HCl 4 mg 11/02/17 15:46 11/02/17 16:02 Zofran IVPUSH 11/02/17 15:47 4 mg ONETIME ONE Administration Sodium Chloride 10 ml 11/02/17 15:46 11/02/17 16:03 Saline Flush FLUSH 10 ml ASDIRECTED PRN Administration Keep Vein Open - Re-Assessments/Exams Free Text/Narrative Re-Assessment/Exam: IV established with normal saline 500 mL per hour, Zofran 4 mg IVP. Initial lab studies include: CBC, chem 14, CRP, urine drug screen, TSH, UA, serum EtOH, and x-ray of the abdomen/chest. Labs reviewed: CBC and chemistry panel were essentially normal. Potassium mildly low at 3.3. CRP 1.1. TSH within normal limits. UA trace protein. Urine drug tox positive for methamphetamines, benzodiazepines, and marijuana. Serum EtOH 0.00. Discuss results of labs with the patient. He is unaware how he would've came in contact with methamphetamines and also benzos. He refuses using. He is feeling better after the IV fluids. He is ready be discharged home. Discharge instructions as documented. The patient remained hemodynamically stable while under my care in the E.D. I discussed the concerning symptoms for which to return to the E.D. with the patient. The patient verbalized understanding. All questions were answered. Departure - Departure Time of Disposition: 19:16 Disposition: Home, Self-Care 01 Condition: Good Clinical Impression: Malaise and fatigue, Methamphetamine use, Marijuana abuse, Hypokalemia - Discharge Information Instructions: Cannabis Use Disorder, Chemical Dependency, Substance Use Disorder and Mental Illness, Hypokalemia, Stimulant Use Disorder- Methamphetamines Referrals: PCP,Unknown [Primary Care Provider] - Forms: ED Department Discharge Additional Instructions: Please refrain from utilizing marijuana and alcohol. Stop using methamphetamines and/or benzodiazepines if using. Please make an appt with a substance abuse counselor at the numbers provided. Establish care with a primary care provider for further evaluation for depression. Eat a balanced diet. Push the fluids. Ensure adequate sleep. Return to the ED if you develop any new or worsening symptoms. - My Orders Last 24 Hours: My Active Orders 11/02/17 15:46 Peripheral IV Care [RC] . DIRECTED Peripheral IV Insertion Adult [OM.PC] Routine 11/02/17 15:49 Abdomen Series w Chest 1V [CR] Stat 11/02/17 17:34 DRUG SCREEN, URINE [URCHEM] Stat - Assessment/Plan Last 24 Hours: My Active Orders 11/02/17 15:46 Peripheral IV Care [RC] . DIRECTED Peripheral IV Insertion Adult [OM.PC] Routine 11/02/17 15:49 Abdomen Series w Chest 1V [CR] Stat 11/02/17 17:34 DRUG SCREEN, URINE [URCHEM] Stat
[2017-11-02] MEDS ORDERED: Sodium Chloride 0.9% 1,000 ML IV SCH (16:00)
--- NOTE | 2017-11-09 07:30 | CR ---
Abdominal series: Supine and upright views of the abdomen were obtained as well as frontal view of the chest. Comparison: Prior abdominal x-ray of 11/10/14 and chest x-ray of 03/25/16. Heart size and mediastinum are normal. Lungs are clear. Bowel gas pattern appears normal. No abnormal calcifications or soft tissue abnormality is seen. Calcification is identified within the right pelvis which is felt compatible with phleboliths. Incidental bone island is noted within the left inferior pubic ramus. No free air is seen. No soft tissue finding is seen. Impression: 1. Nothing acute is seen on abdominal series. Diagnostic code #2
== END 2017-11-02 19:30 | disposition home or self-care (01) ==
LOC: JD.ED 15:16
DX: E87.6 Hypokalemia (principal); R53.83 Other fatigue; R53.81 Other malaise; F15.90 Other stimulant use, unspecified, uncomplicated; F12.10 Cannabis abuse, uncomplicated; F17.210 Nicotine dependence, cigarettes, uncomplicated
CPT/HCPCS: 36415; 74022; 80053; 80306; 81001; 84443; 85007; 85027; 86140; 96361; 96374; 99284; G0480; J2405; J7040; J7050

== ENCOUNTER 2018-04-06 01:32 | Emergency (ER) | payer SELFPAY ==
[2018-04-06] MEDS ORDERED: Acetaminophen/HYDROcodone 325-5 MG Tab PO ONE (01:56)
[2018-04-06] MEDS ORDERED: Amoxicillin 500 MG Cap PO ONE (01:56)
--- NOTE | 2018-04-06 02:01 | EDM.PDOC ---
ED HPI GENERAL MEDICAL PROBLEM - General Chief Complaint: ENT Problem Stated Complaint: TOOTH PAIN Time Seen by Provider: 04/06/18 01:52 Source of Information: Reports: Patient, RN Notes Reviewed - History of Present Illness INITIAL COMMENTS - FREE TEXT/NARRATIVE: 32-year-old male comes in with left lower posterior dental pain. States his tooth is been broken off, sensitive for a long time but is been much worse the last day or 2. Been taking some Aleve and Motrin and not getting much relief from that. He states pain is severe at this time. No fever or chills. Left Lower Tooth/Teeth Pain Score (Numeric/FACES): 9 - Related Data Allergies Allergy/AdvReac Type Severity Reaction Status Date / Time No Known Allergies Allergy Verified 04/06/18 01:38 Home Meds: Home Meds Hydrocodone/Acetaminophen [[place] 5-325 Tablet] 1 each PO Q4HR #20 tablet [Rx] Past Medical History - Past Health History Medical/Surgical History: Denies Medical/Surgical History HEENT History: Reports: Impaired Vision Gastrointestinal History: Reports: Gastritis Genitourinary History: Reports: Renal Calculus Musculoskeletal History: Reports: Back Pain, Chronic Neurological History: Reports: Migraines Psychiatric History: Reports: Other (See Below) Other Psychiatric History: 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 Immunologic History: Reports: None - Infectious Disease History Infectious Disease History: Reports: Chicken Pox - Past Surgical History Musculoskeletal Surgical History: Reports: Arthroscopic Knee Social & Family History - Family History Family Medical History: Noncontributory - Tobacco Use Smoking Status *Q: Current Every Day Smoker Years of Tobacco use: 12 Packs/Tins Daily: 0.2 - Caffeine Use Caffeine Use: Reports: Coffee, Energy Drinks, Soda - Recreational Drug Use Recreational Drug Use: Yes Drug Use in Last 12 Months: No Recreational Drug Type: Reports: Marijuana/Hashish - Living Situation & Occupation Living situation: Reports: Single Occupation: Employed ED ROS ENT - Review of Systems Review Of Systems: See Below Constitutional: Denies: Fever, Chills HEENT: Reports: Dental Pain Respiratory: Denies: Shortness of Breath Cardiovascular: Denies: Chest Pain GI/Abdominal: Denies: Abdominal Pain, Nausea, Vomiting Skin: Denies: Rash Neurological: Reports: No Symptoms ED EXAM, ENT - Physical Exam Exam: See Below General Appearance: Alert, Moderate Distress Eye Exam: Bilateral Eye: PERRL Mouth/Throat: Other (Left posterior lower molar is broken off at the gumline home a glomus very mildly swollen, no severe swelling, no drainage, localized tenderness) Head: Facial Tenderness (Left posterior jaw). No: Facial Swelling Neck: Supple Respiratory/Chest: No Respiratory Distress, Lungs Clear, Normal Breath Sounds Extremities: Normal Inspection Neurological: Alert Course - Vital Signs Last Recorded V/S: Last Vital Signs Temp 98.3 F 04/06/18 01:38 Pulse 89 04/06/18 01:38 Resp 18 04/06/18 01:38 BP Pulse Ox 97 04/06/18 01:38 - Orders/Labs/Meds Meds: Medications Discontinued Medications Generic Name Dose Route Start Last Admin Trade Name Jose PRN Reason Stop Dose Admin Hydrocodone Bitart/Acetaminophen 1 tab 04/06/18 01:56 04/06/18 02:00 [place] 325-5 Mg PO 04/06/18 01:57 1 tab ONETIME ONE Administration Amoxicillin 1,000 mg 04/06/18 01:56 04/06/18 02:01 Amoxil PO 04/06/18 01:57 1,000 mg ONETIME ONE Administration Departure - Departure Time of Disposition: 01:57 Disposition: Home, Self-Care 01 Condition: Fair Clinical Impression: Pain, dental - Discharge Information Prescriptions: Hydrocodone/Acetaminophen [[place] 5-325 Tablet] 1 each PO Q4HR #20 tablet Instructions: Dental Abscess, [id number] Referrals: PCP,None [Primary Care Provider] - Forms: ED Department Discharge Additional Instructions: Amoxicillin 1000 mg twice daily for the next week or until gone, Aleve 2 tablets twice daily for pain and inflammation, you may take Tylenol in between doses up to 3 times daily for extra pain relief or hydrocodone if needed for severe pain. Do not take Tylenol and hydrocodone at the same time. Do not drive or work when taking hydrocodone. See dentist as soon as possible.
== END 2018-04-06 02:10 | disposition home or self-care (01) ==
LOC: JD.ED 01:32
DX: K08.89 Other specified disorders of teeth and supporting structures (principal); F17.210 Nicotine dependence, cigarettes, uncomplicated
CPT/HCPCS: 99282; A9270; 99283